=== PATIENT | female | born 1965 | race American Indian/Alaskan Native ===

== ENCOUNTER 2017-03-18 08:35 | Outpatient (CLI) | payer OTHER ==
--- NOTE | 2017-03-19 09:48 | Nuclear Medicine Report ---
NUCLEAR MEDICINE WHOLE-BODY BONE SCAN: 03/18/17 09:00:00 CLINICAL: Right hip pain. History of right breast cancer status post right mastectomy with TRAM reconstruction. COMPARISON: 09/19/16 bilateral mammogram. No prior bone scan for comparison. TECHNIQUE: 25.0-millicuries technetium 99m MDP was injected intravenously and whole body scans were obtained at 3 hours. FINDINGS: Normal distribution of radionuclide in the skeleton and soft tissues except for a single focus of uptake in the right upper breast. This activity correlates with heavily calcified benign fat necrosis in the reconstructed breast. The right hip is normal. No suspicious uptake. IMPRESSION: Negative study with benign focal uptake in the reconstructed right breast.
== END 2017-03-18 08:36 | disposition home or self-care (01) ==
LOC: NM 08:35
PROVIDERS: ATTEND Internal Medicine Hematology & Oncology
DX: M25.552 Pain in left hip (principal); M89.8X9 Other specified disorders of bone, unspecified site; Z85.3 Personal history of malignant neoplasm of breast; Z90.11 Acquired absence of right breast and nipple
CPT/HCPCS: 78306; A9503